=== PATIENT | male | born 1995 | race African-American/Black ===

== ENCOUNTER 2023-08-07 10:25 | Emergency (ER) | payer BC ==
[2023-08-07 10:44] VITALS: BP 125/80; PULSE 91; RESP 16; TEMP 96.7; BMI 31.7
[2023-08-07] MEDS ORDERED: CEPHALEXIN MONOHYDRATE 500 MG CAPSULE (UD) PO ONE (11:22)
[2023-08-07] MEDS ORDERED: predniSONE 20 MG TABLET (UD) PO ONE (11:22)
[2023-08-07] MEDS ORDERED: CEPHALEXIN MONOHYDRATE 500 MG CAPSULE (UD) ONE (11:26)
[2023-08-07] MEDS ORDERED: predniSONE 20 MG TABLET (UD) ONE (11:26)
== END 2023-08-07 11:58 | disposition home or self-care (01) ==
LOC: JERFT 10:25
DX: S93.402A Sprain of unspecified ligament of left ankle, initial encounter (principal); L03.213 Periorbital cellulitis; R22.42 Localized swelling, mass and lump, left lower limb; X58.XXXA Exposure to other specified factors, initial encounter
CPT/HCPCS: 73610-TC-LT-FY; 73630-TC-LT; 99283-25